=== PATIENT | female | born 1975 | race African-American/Black ===

== ENCOUNTER 2017-06-12 23:20 | Emergency (ER) | payer MEDICAID | END 2017-06-13 03:03 | disposition left against medical advice (07) | LOC: ER 23:20 | DX: R10.9 Unspecified abdominal pain (principal); Z53.21 Procedure and treatment not carried out due to patient leaving prior to being seen by health care provider ==

== ENCOUNTER 2017-07-15 13:20 | Emergency (ER) | payer MEDICAID ==
[~2017-07-15] VITALS: Ht 157.5 cm; Wt 60.0 kg
[2017-07-15 16:52] LABS: BASOPHILS % 0.7 % (0.0-2.0); EOSINOPHILS % 1.3 % (0.0-5.0); HEMATOCRIT. 39.4 % (36.0-48.0); HEMOGLOBIN. 12.8 g/dL (12.0-16.0); LYMPHOCYTES % 24.1 % (20.0-50.0); MEAN CORPUSCULAR HEMOGLOBIN 26.6 pg (28.0-32.0); MEAN CORPUSCULAR VOLUME 81.9 fL (81.0-99.0); MEAN PLATELET VOLUME 9.5 fl (7.4-10.4); MONOCYTES % 8.8 % (2.0-8.0); NEUTROPHILS % 65.1 % (40.0-76.0); PLATELET 224 x1000/uL (130-400); RED CELL DISTRIBUTION WIDTH 16.1 % (11.6-14.6)
[2017-07-15 17:10] LABS: CARBON DIOXIDE 30 mEq/L (21-32); CHLORIDE 108 mEq/L (98-107); TROPONIN I < 0.02 ng/mL (0.00-0.04)
[2017-07-15] MEDS ORDERED: ACETAMINOPHEN WITH CODEINE 300/30MG TABLET PO ONE (19:30)
[2017-07-15 19:50] VITALS: BP 182/100
== END 2017-07-15 20:31 | disposition home or self-care (01) ==
LOC: ER 18:46
DX: R60.0 Localized edema (principal); R10.84 Generalized abdominal pain; I10 Essential (primary) hypertension; R00.1 Bradycardia, unspecified; Z88.0 Allergy status to penicillin
CPT/HCPCS: 36415; 71010; 80048; 83880; 84484; 85025; 93005; 93970; 99285

== ENCOUNTER 2023-12-29 12:30 | Emergency (ER) | payer MEDICAID, OTHER ==
[~2023-12-29] VITALS: Ht 154.9 cm; Wt 74.8 kg
[2023-12-29 12:37] VITALS: O2SAT 100
[2023-12-29] MEDS: CLONIDINE 0.1MG TABLET PO ONE (13:52)
[2023-12-29 14:18] LABS: BASOPHILS % 0.4 % (0.0-2.0); DIFFERENTIAL COMMENT 0; EOSINOPHILS % 0.7 % (0.0-5.0); HEMATOCRIT. 35.7 % (36.0-48.0); HEMOGLOBIN. 11.1 g/dL (12.0-16.0); LYMPHOCYTES % 20.5 % (20.0-50.0); MEAN CORPUSCULAR HEMOGLOBIN 24.9 pg (28.0-32.0); MEAN CORPUSCULAR HGB CONC 31.2 g/dL (31.0-37.0); MEAN PLATELET VOLUME 8.6 fl (7.4-10.4); MONOCYTES % 7.4 % (2.0-8.0); PLATELET 315 x1000/uL (130-400); RED BLOOD CELL COUNT 4.46 mill/uL (4.2-5.4); WHITE BLOOD COUNT 7.9 x1000/uL (4.5-11.0)
[2023-12-29] MEDS: KETOROLAC 30MG/ML VIAL IM NR (14:24)
[2023-12-29 14:31] LABS: ALANINE AMINOTRANSFERASE 10 IU/L (10-49); ALBUMIN 4.6 g/dL (3.2-4.8); ASPARTATE AMINOTRANSFERASE 14 IU/L (<34); BILIRUBIN TOTAL 0.3 mg/dL (0.1-1.0); CALCIUM 8.7 mg/dL (8.7-10.4); CARBON DIOXIDE 25 mEq/L (21-32); CHLORIDE 109 mEq/L (98-107); CREATININE 0.9 mg/dL (0.6-1.0); GLUCOSE 85 mg/dL (70-105); POTASSIUM 4.2 mEq/L (3.5-5.1); PROTEIN TOTAL 7.8 g/dL (6.0-8.3); SODIUM 140 mEq/L (136-145); UREA NITROGEN BLOOD 9 mg/dL (9-23)
[2023-12-29 14:32] LABS: TROPONIN I HIGH SENSITIVITY < 4 ng/L (3.0-34)
[2023-12-29 14:35] LABS: CLARITY URINE CLEAR (CLEAR); COLOR URINE YELLOW (YELLOW); GLUCOSE URINE NEGATIVE (NEGATIVE); KETONES URINE TRACE (NEGATIVE); LEUKOCYTE ESTERASE URINE NEGATIVE (NEGATIVE); NITRITE URINE NEGATIVE (NEGATIVE); OCCULT BLOOD URINE NEGATIVE (NEGATIVE); PH URINE 5.5 (4.5-8.0); PROTEIN URINE NEGATIVE (NEGATIVE); SPECIFIC GRAVITY URINE 1.019 (1.005-1.030)
[2023-12-29 15:11] VITALS: BP 159/89; PULSE 63; RESP 18; TEMP 98.7
[2023-12-29] MEDS ORDERED: HYDR12.54 MT (15:40)
== END 2023-12-29 16:02 | disposition home or self-care (01) ==
LOC: ER 12:30
DX: I10 Essential (primary) hypertension (principal)
CPT/HCPCS: 80053; 81003; 81025; 85025; 84484; 36415; 71045; 93005; 96372; 99284; J1885; Z7610

== ENCOUNTER 2024-05-13 15:18 | Emergency (ER) | payer OTHER ==
[~2024-05-13] VITALS: Ht 165.1 cm; Wt 59.0 kg
[~2024-05-13 15:18] MED LIST: HYDR12.54 MT
[2024-05-13 15:25] VITALS: O2SAT 98
[2024-05-13 16:42] LABS: BASOPHILS % 0.2 % (0.0-2.0); EOSINOPHILS % 0.4 % (0.0-5.0); HEMATOCRIT. 36.4 % (36.0-48.0); HEMOGLOBIN. 11.6 g/dL (12.0-16.0); LYMPHOCYTES % 18.5 % (20.0-50.0); MEAN CORPUSCULAR HEMOGLOBIN 25.7 pg (28.0-32.0); MEAN CORPUSCULAR HGB CONC 31.8 g/dL (31.0-37.0); MEAN CORPUSCULAR VOLUME 80.7 fL (81.0-99.0); MEAN PLATELET VOLUME 9.5 fl (7.4-10.4); MONOCYTES % 6.5 % (2.0-8.0); NEUTROPHILS % 74.4 % (40.0-76.0); PLATELET 280 x1000/uL (130-400); RED BLOOD CELL COUNT 4.51 mill/uL (4.2-5.4); RED CELL DISTRIBUTION WIDTH 18.2 % (11.6-14.6)
[2024-05-13 16:46] LABS: CHLORIDE 108 mEq/L (98-107); POTASSIUM 3.8 mEq/L (3.5-5.1); SODIUM 138 mEq/L (136-145)
[2024-05-13 16:47] LABS: CALCIUM 9.2 mg/dL (8.7-10.4); CARBON DIOXIDE 25 mEq/L (21-32)
[2024-05-13 16:49] LABS: HCG SCREEN NEGATIVE
[2024-05-13 16:52] LABS: CREATININE 0.8 mg/dL (0.6-1.0); GLUCOSE 98 mg/dL (70-105); UREA NITROGEN BLOOD 7 mg/dL (9-23)
[2024-05-13 17:07] LABS: TROPONIN I HIGH SENSITIVITY < 4 ng/L (3.0-34)
[2024-05-13] MEDS: MORPHINE SULFATE 4 MG/ML INJ (FOR IV/IM USE) IV STA (18:56)
[2024-05-13] MEDS ORDERED: AMLO10TA80 MT (20:43)
[2024-05-13 20:54] VITALS: BP 176/88; PULSE 63; RESP 19; TEMP 98
[2024-05-13] MEDS: AMLODIPINE 5MG TABLET PO NR (20:55)
[2024-05-13] MEDS: LISINOPRIL 10MG TABLET PO NR (20:55)
[2024-05-14] MEDS ORDERED: IOHEXOL-350 100 ML BOTTLE ONE (00:20)
== END 2024-05-13 21:07 | disposition home or self-care (01) ==
LOC: ER 15:18
DX: R07.9 Chest pain, unspecified (principal); I10 Essential (primary) hypertension; Z86.73 Personal history of transient ischemic attack (TIA), and cerebral infarction without residual deficits; Z88.0 Allergy status to penicillin
CPT/HCPCS: 99285; 96374; 71275; 71045; 80048; 84703; 83880; 85025; 85379; 84484; 36415; 93005; Q9967; J2270

== ENCOUNTER 2024-09-02 20:52 | Emergency (ER) | payer OTHER ==
[~2024-09-02] VITALS: Ht 165.1 cm; Wt 73.0 kg
[~2024-09-02 20:52] MED LIST changes: +AMLO10TA80 MT
[2024-09-02 21:04] VITALS: O2SAT 99
[2024-09-02 22:15] LABS: BASOPHILS % 0.5 % (0.0-2.0); EOSINOPHILS % 0.6 % (0.0-5.0); HEMATOCRIT. 39.5 % (36.0-48.0); HEMOGLOBIN. 12.8 g/dL (12.0-16.0); LYMPHOCYTES % 23.6 % (20.0-50.0); MEAN CORPUSCULAR HGB CONC 32.4 g/dL (31.0-37.0); MEAN CORPUSCULAR VOLUME 80.3 fL (81.0-99.0); MEAN PLATELET VOLUME 8.4 fl (7.4-10.4); MONOCYTES % 7.4 % (2.0-8.0); NEUTROPHILS % 67.9 % (40.0-76.0); PLATELET 332 x1000/uL (130-400); RED BLOOD CELL COUNT 4.92 mill/uL (4.2-5.4); RED CELL DISTRIBUTION WIDTH 17.8 % (11.6-14.6); WHITE BLOOD COUNT 7.2 x1000/uL (4.5-11.0)
[2024-09-02 22:20] LABS: CHLORIDE 104 mEq/L (98-107); POTASSIUM 3.5 mEq/L (3.5-5.1); SODIUM 136 mEq/L (136-145)
[2024-09-02 22:21] LABS: CALCIUM 9.5 mg/dL (8.7-10.4); CARBON DIOXIDE 25 mEq/L (21-32)
[2024-09-02 22:23] LABS: INR 0.9; PROTHROMBIN TIME 10.6 sec (9.6-11.0)
[2024-09-02 22:26] LABS: CREATININE 0.9 mg/dL (0.6-1.0); GLUCOSE 100 mg/dL (70-105); UREA NITROGEN BLOOD 10 mg/dL (9-23)
[2024-09-02 22:32] LABS: TROPONIN I HIGH SENSITIVITY < 4 ng/L (3.0-34)
[2024-09-02] MEDS: IBUPROFEN 600MG TABLET PO ONE (22:48)
[2024-09-02 23:01] LABS: HCG SCREEN NEGATIVE
[2024-09-03 00:05] VITALS: BP 157/89; PULSE 74; RESP 19; TEMP 36.89184; O2SAT 98
== END 2024-09-03 00:08 | disposition home or self-care (01) ==
LOC: ER 20:52
DX: R07.89 Other chest pain (principal); I10 Essential (primary) hypertension; E11.9 Type 2 diabetes mellitus without complications; E78.00 Pure hypercholesterolemia, unspecified; F41.9 Anxiety disorder, unspecified; F32.9 Major depressive disorder, single episode, unspecified; Z88.0 Allergy status to penicillin
CPT/HCPCS: 36415; 71045; 80048; 84484; 84703; 85025; 93005; 99285

== ENCOUNTER 2024-09-19 09:04 | Emergency (ER) | payer OTHER ==
[~2024-09-19] VITALS: Ht 165.1 cm; Wt 65.0 kg
[~2024-09-19 09:04] MED LIST changes: +HYDR100T11 MT; -HYDR12.54 MT
[2024-09-19 09:06] VITALS: O2SAT 100
[2024-09-19 10:27] LABS: CARBON DIOXIDE 21 mEq/L (21-32); CHLORIDE 107 mEq/L (98-107); POTASSIUM 3.5 mEq/L (3.5-5.1); SODIUM 139 mEq/L (136-145)
[2024-09-19 10:28] LABS: CALCIUM 9.6 mg/dL (8.7-10.4)
[2024-09-19 10:32] LABS: CREATININE 0.9 mg/dL (0.6-1.0); GLUCOSE 112 mg/dL (70-105)
[2024-09-19 10:33] LABS: UREA NITROGEN BLOOD 13 mg/dL (9-23)
[2024-09-19 10:35] LABS: PHOSPHORUS 2.3 mg/dL (2.5-4.9)
[2024-09-19 10:37] LABS: T4 FREE 1.66 ng/dL (0.89-1.76); THYROID STIMULATING HORMONE 1.29 uIU/mL (0.55-4.78)
[2024-09-19 10:41] LABS: BASOPHILS % 0.3 % (0.0-2.0); DIFFERENTIAL COMMENT 0; HEMATOCRIT. 41.4 % (36.0-48.0); HEMOGLOBIN. 12.8 g/dL (12.0-16.0); LYMPHOCYTES % 10.2 % (20.0-50.0); MEAN CORPUSCULAR HEMOGLOBIN 24.9 pg (28.0-32.0); MEAN CORPUSCULAR VOLUME 80.2 fL (81.0-99.0); MEAN PLATELET VOLUME 9.1 fl (7.4-10.4); MONOCYTES % 5.3 % (2.0-8.0); NEUTROPHILS % 84.2 % (40.0-76.0); PLATELET 421 x1000/uL (130-400); RED BLOOD CELL COUNT 5.16 mill/uL (4.2-5.4); RED CELL DISTRIBUTION WIDTH 17.3 % (11.6-14.6); WHITE BLOOD COUNT 8.6 x1000/uL (4.5-11.0)
[2024-09-19 11:37] LABS: TROPONIN I HIGH SENSITIVITY 44 ng/L (3.0-34)
[2024-09-19] MEDS: POTASSIUM PHOSPHATE 10 MMOL in DEXT 5% WATER 246.6667 ML IV NR (13:38)
[2024-09-19] MEDS: ASPIRIN 81MG TABLET PO NR (13:45)
[2024-09-19] MEDS: ATORVASTATIN CALCIUM 40MG TABLET PO NR (14:00)
[2024-09-19 16:14] VITALS: TEMP 36.72516; O2SAT 100
[2024-09-19 16:17] LABS: TROPONIN I HIGH SENSITIVITY 78 ng/L (3.0-34)
[2024-09-19 16:34] VITALS: BP 115/68; PULSE 98; RESP 20
[2024-09-19] MEDS: HYDROCODONE/ACETAMINOPHEN 5/325MG TABLET PO NR (16:34)
== END 2024-09-19 16:51 | disposition short-term general hospital (02) ==
LOC: ER 09:04 → EDBEDREQ 14:14 → ER 16:51
DX: I21.4 Non-ST elevation (NSTEMI) myocardial infarction (principal); E83.39 Other disorders of phosphorus metabolism; I10 Essential (primary) hypertension; Z88.0 Allergy status to penicillin
CPT/HCPCS: 80048; 83880; 84439; 84480; 83605; 83735; 84100; 84443; 85025; 85379; 84484; 36415; 84145; 71045; 93005; 96365; 99285; Z7610 ×2; J3490; J7060

== ENCOUNTER 2024-10-17 15:00 | Emergency (ER) | payer OTHER ==
[~2024-10-17] VITALS: Ht 167.6 cm; Wt 79.0 kg
[2024-10-17 15:05] VITALS: O2SAT 98
[2024-10-17 16:49] LABS: CHLORIDE 108 mEq/L (98-107); POTASSIUM 4.2 mEq/L (3.5-5.1); SODIUM 141 mEq/L (136-145)
[2024-10-17 16:50] LABS: CARBON DIOXIDE 28 mEq/L (21-32)
[2024-10-17 16:51] LABS: BASOPHILS % 0.3 % (0.0-2.0); CALCIUM 9.3 mg/dL (8.7-10.4); DIFFERENTIAL COMMENT 0; EOSINOPHILS % 2.2 % (0.0-5.0); HEMATOCRIT. 33.5 % (36.0-48.0); HEMOGLOBIN. 10.6 g/dL (12.0-16.0); LYMPHOCYTES % 25.3 % (20.0-50.0); MEAN CORPUSCULAR HEMOGLOBIN 24.7 pg (28.0-32.0); MEAN CORPUSCULAR HGB CONC 31.6 g/dL (31.0-37.0); MEAN CORPUSCULAR VOLUME 78.3 fL (81.0-99.0); MEAN PLATELET VOLUME 8.6 fl (7.4-10.4); MONOCYTES % 8.1 % (2.0-8.0); NEUTROPHILS % 64.1 % (40.0-76.0); PLATELET 332 x1000/uL (130-400); RED BLOOD CELL COUNT 4.28 mill/uL (4.2-5.4); RED CELL DISTRIBUTION WIDTH 16.8 % (11.6-14.6); WHITE BLOOD COUNT 5.7 x1000/uL (4.5-11.0)
[2024-10-17 16:55] LABS: CREATININE 0.9 mg/dL (0.6-1.0); GLUCOSE 86 mg/dL (70-105)
[2024-10-17 16:56] LABS: UREA NITROGEN BLOOD 11 mg/dL (9-23)
[2024-10-17 17:10] LABS: TROPONIN I HIGH SENSITIVITY < 4 ng/L (3.0-34)
[2024-10-17 17:24] LABS: D-DIMER 0.4 mg/L FEU (<0.50); INR 0.9; PROTHROMBIN TIME 10.3 sec (9.6-11.0)
[2024-10-17 18:13] VITALS: TEMP 36.78072
[2024-10-17] MEDS: LABETALOL 5MG/ML 4ML INJ IV ONE (18:30)
[2024-10-17 20:42] LABS: TROPONIN I HIGH SENSITIVITY < 4 ng/L (3.0-34)
[2024-10-17 21:33] VITALS: BP 172/88; PULSE 78; RESP 18; O2SAT 96
== END 2024-10-17 21:55 | disposition admitted as inpatient to this hospital (09) ==
LOC: ER 15:00 → EDBEDREQ 15:30 → ER 21:55
DX: I16.0 Hypertensive urgency (principal); R07.89 Other chest pain; R06.09 Other forms of dyspnea; I10 Essential (primary) hypertension; E78.5 Hyperlipidemia, unspecified; I25.10 Atherosclerotic heart disease of native coronary artery without angina pectoris; R41.82 Altered mental status, unspecified; Z88.0 Allergy status to penicillin
CPT/HCPCS: 36415; 71045; 80048; 83735; 83880; 84484; 85025; 85379; 99291